=== PATIENT | male | born 1960 | race Caucasian/White ===

== ENCOUNTER 2018-01-25 09:52 | Inpatient (IN) | payer BC ==
[~2018-01-25] VITALS: Ht 182.9 cm; Wt 103.1 kg
[~2018-01-25 09:52] MED LIST: AMLO10TA4 PO; ATOR10TA PO; CALC0.5C8 PO; DARB10SY IJ; ERGO500027 PO; HYDR-2869 PO; HYDR100T24 PO; METO25TA4 PO; PANT40TA3 PO; TAMS0.4C97 PO
--- NOTE | 2018-01-25 10:27 | PHYS DOC ---
Past Medical History Past Medical History: GERD, Hypertension, Renal Failure Past Surgical History: Other Additional Past Surgical Histo: dialysis catheter right chest Smoking: Cigarettes Alcohol Use: Occasionally Drug Use: None Adult General Chief Complaint Chief Complaint: WEAKNESS/GENERALIZED HPI HPI Patient is a 57-year-old male who presents to the emergency department for evaluation of generalized weakness and fatigue. He has had 2 falls in the past few days as well. He does complain of some lower back pain which she states began hurting him after the fall. He denies hitting his head. He is having generalized weakness. He states he has a history of ESRD, and states she last had dialysis over a week ago, when he was apparently seen at [facility]. He denies any chest pain or shortness of breath, nausea, vomiting, or diarrhea. There are no alleviating or exacerbating factors to his symptoms. He reports that he does still make urine, although only very small amounts. Review of Systems Review of Systems Constitutional: Denies fever or chills [] Eyes: Denies change in visual acuity, redness, or eye pain [] HENT: Denies nasal congestion or sore throat [] Respiratory: Denies cough or shortness of breath [] Cardiovascular:The patient denies any shortness of breath, chest pain, palpitations, or orthopnea [] GI: Denies abdominal pain, nausea, vomiting, bloody stools or diarrhea [] : Denies dysuria or hematuria [] Musculoskeletal: Denies neck pain or joint pain [] Integument: Denies rash or skin lesions [] Neurologic: Denies headache, focal weakness or sensory changes [] Endocrine: Denies polyuria or polydipsia [] All other systems were reviewed and found to be within normal limits, except as documented in this note. Allergies Allergies Allergies Coded Allergies Type Severity Reaction Last Updated Verified No Known Drug Allergies 09/05/15 No Physical Exam Physical Exam PHYSICAL EXAM: CONSTITUTIONAL: Well developed, well nourished HEAD: normocephalic, atraumatic EENT: PERRL, EOMI. Conjunctivae normal color, sclerae non-icteric; moist mucous membranes. NECK: Supple, non-tender; no meningismus.There is full, painless range of motion of the cervical spine, without any focal bony midline tenderness to palpation. LUNGS: Lungs CTA, breathing even and unlabored. Normal air movement. HEART: Regular rate and rhythm, no murmur CHEST: No deformity; non-tender ABDOMEN: The abdomen is soft, and non-tender, no masses or bruits. EXTREM: Normal ROM; no deformity, no calf tenderness. Normal pulses palpable in all extremities. There is no pedal edema. The extremities appear atraumatic. There is an AV fistula in the left upper extremity. SKIN: No rash; no diaphoresis NEURO: Alert; normal speech and cognition; CN's grossly intact; strength grossly intact without focal deficit. BACK: No CVA TTP. There is mild tenderness to palpation diffusely in the lower back, without any focal bony tenderness to palpation or step-off. Current Patient Data Vital Signs Vital Signs Date Time Temp Pulse Resp B/P (MAP) Pulse Ox O2 Delivery O2 Flow Rate FiO2 01/25/18 09:55 97.8 99 20 176/79 (111) 97 Room Air 97.8 Lab Values Laboratory Tests Test 01/25/18 11:06 White Blood Count 8.5 x10^3/uL (4.0-11.0) Red Blood Count 3.16 x10^6/uL (4.30-5.70) L Hemoglobin 9.6 g/dL (13.0-17.5) L Hematocrit 28.6 % (39.0-53.0) L Mean Corpuscular Volume 91 fL (79-100) Mean Corpuscular Hemoglobin 31 pg (25-35) Mean Corpuscular Hemoglobin Concent 34 g/dL (31-37) Red Cell Distribution Width 13.6 % (11.5-14.5) Platelet Count 82 x10^3/uL (140-400) L Neutrophils (%) (Auto) 89 % (31-73) H Lymphocytes (%) (Auto) 4 % (24-48) L Monocytes (%) (Auto) 7 % (0-9) Eosinophils (%) (Auto) 0 % (0-3) Basophils (%) (Auto) 0 % (0-3) Neutrophils # (Auto) 7.6 x10^3uL (1.8-7.7) Lymphocytes # (Auto) 0.3 x10^3/uL (1.0-4.8) L Monocytes # (Auto) 0.6 x10^3/uL (0.0-1.1) Eosinophils # (Auto) 0.0 x10^3/uL (0.0-0.7) Basophils # (Auto) 0.0 x10^3/uL (0.0-0.2) Platelet Estimate Pending Sodium Level 131 mmol/L (136-145) L Potassium Level 4.6 mmol/L (3.5-5.1) Chloride Level 94 mmol/L (98-107) L Carbon Dioxide Level 17 mmol/L (21-32) L Anion Gap 20 (6-14) H Blood Urea Nitrogen 120 mg/dL (8-26) H Creatinine 10.9 mg/dL (0.7-1.3) H Estimated GFR (Cockcroft-Gault) 4.9 BUN/Creatinine Ratio 11 (6-20) Glucose Level 127 mg/dL (70-99) H Calcium Level 9.0 mg/dL (8.5-10.1) Magnesium Level 2.2 mg/dL (1.8-2.4) Total Bilirubin 2.5 mg/dL (0.2-1.0) H Aspartate Amino Transferase (AST) 87 U/L (15-37) H Alanine Aminotransferase (ALT) 73 U/L (16-63) H Alkaline Phosphatase 140 U/L (46-116) H Creatine Kinase 401 U/L (39-308) H Creatine Kinase MB (Mass) 17.1 ng/mL (0.0-3.6) H Creatine Kinase MB Relative Index 4.3 % (0-4) H Troponin I Quantitative < 0.017 ng/mL (0.000-0.055) Total Protein 7.2 g/dL (6.4-8.2) Albumin 2.8 g/dL (3.4-5.0) L Albumin/Globulin Ratio 0.6 (1.0-1.7) L Lipase 130 U/L (73-393) Laboratory Tests 01/25/18 11:06 Laboratory Tests 01/25/18 11:06 EKG EKG [Normal sinus rhythm at a rate of 96 beats for minute, left axis deviation, normal intervals. There are no acute ischemic ST/T changes. There are no peaked T waves present.] Radiology/Procedures Radiology/Procedures [PROCEDURE: PORTABLE CHEST 1V PORTABLE CHEST 1V Clinical Indication: ALTERED MENTAL STATUS Comparison: AP chest September 02, 2015. Findings: The cardiomediastinal silhouette is stable. Lungs are clear. There is no pneumothorax. No pleural effusion is appreciated. No acute bone abnormality. Calcific density projecting over the right lateral hemithorax is unchanged. IMPRESSION: No acute cardiopulmonary process. ] PROCEDURE: LUMBAR SPINE 2-3V EXAM: AP, lateral and lumbosacral spot views of the lumbar spine DATE: 01/25/2018 10:18 AM INDICATION: RECENT FALL LOWER BACK PAIN COMPARISON: No Prior FINDINGS: There are 5 nonrib-bearing lumbar-type vertebral bodies. Straightening of the normal lumbar lordosis. No spondylolisthesis. Intervertebral disc heights are grossly preserved. Anterior endplate osteophytes are seen at multiple levels most prominent at L5. Atherosclerotic vascular calcifications are seen. IMPRESSION: 1. Negative acute fracture or subluxation. PROCEDURE: CT HEAD WO CONTRAST PQRS Compliance Statement: One or more of the following individualized dose reduction techniques were utilized for this examination: 1. Automated exposure control 2. Adjustment of the mA and/or kV according to patient size 3. Use of iterative reconstruction technique CT HEAD WITHOUT CONTRAST History: AMS, WEAKNESS Comparison: None. Procedure: Axial images are obtained of the head from the skull base through the vertex without IV contrast. Findings: The ventricles and sulci are normal for the patient's age. There is mild periventricular white matter hypoattenuation. This is a nonspecific finding but is commonly due to chronic small vessel ischemic disease in a patient of this age. No mass-effect, midline shift, hemorrhage, extra-axial fluid collection, or obvious acute infarction is identified. Basilar cisterns are patent. Bone windows demonstrate no acute calvarial abnormality. The visualized paranasal sinuses are clear. Mastoid air cells are well aerated. IMPRESSION: No acute intracranial abnormality. Course & Med Decision Making Course & Med Decision Making Pertinent Labs and Imaging studies reviewed. (See chart for details) [12:00 PM: The patient's condition remained stable. I discussed the case with the patient's PCP, Dr. Kirkland, who will admit the patient for further treatment. Nephrology on-call will be consulted.] Dragon Disclaimer Dragon Disclaimer This electronic medical record was generated, in whole or in part, using a voice recognition dictation system. Departure Departure Impression: Primary Impression: Weakness Additional Impressions: ESRD (end stage renal disease) Noncompliance with renal dialysis Uremia Disposition: 09 ADMITTED INPATIENT Admitting Physician: Alexey Renee Condition: STABLE Referrals: NO PCP (PCP) Problem Qualifiers KIRBY GRAFF MD Jan 25, 2018 10:27
--- NOTE | 2018-01-25 10:46 | EKG ---
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
--- NOTE | 2018-01-25 10:47 | RAD ---
PORTABLE CHEST 1V Clinical Indication: ALTERED MENTAL STATUS Comparison: AP chest September 02, 2015. Findings: The cardiomediastinal silhouette is stable. Lungs are clear. There is no pneumothorax. No pleural effusion is appreciated. No acute bone abnormality. Calcific density projecting over the right lateral hemithorax is unchanged. IMPRESSION: No acute cardiopulmonary process. Electronically signed by: Geronimo Gregg MD (01/25/2018 10:43 AM) [id number]
--- NOTE | 2018-01-25 11:12 | RAD ---
EXAM: AP, lateral and lumbosacral spot views of the lumbar spine DATE: 01/25/2018 10:18 AM INDICATION: RECENT FALL LOWER BACK PAIN COMPARISON: No Prior FINDINGS: There are 5 nonrib-bearing lumbar-type vertebral bodies. Straightening of the normal lumbar lordosis. No spondylolisthesis. Intervertebral disc heights are grossly preserved. Anterior endplate osteophytes are seen at multiple levels most prominent at L5. Atherosclerotic vascular calcifications are seen. IMPRESSION: 1. Negative acute fracture or subluxation. Electronically signed by: Dave Dang MD (01/25/2018 11:08 AM) [id number]
--- NOTE | 2018-01-25 11:13 | RAD ---
PQRS Compliance Statement: One or more of the following individualized dose reduction techniques were utilized for this examination: 1. Automated exposure control 2. Adjustment of the mA and/or kV according to patient size 3. Use of iterative reconstruction technique CT HEAD WITHOUT CONTRAST History: AMS, WEAKNESS Comparison: None. Procedure: Axial images are obtained of the head from the skull base through the vertex without IV contrast. Findings: The ventricles and sulci are normal for the patient's age. There is mild periventricular white matter hypoattenuation. This is a nonspecific finding but is commonly due to chronic small vessel ischemic disease in a patient of this age. No mass-effect, midline shift, hemorrhage, extra-axial fluid collection, or obvious acute infarction is identified. Basilar cisterns are patent. Bone windows demonstrate no acute calvarial abnormality. The visualized paranasal sinuses are clear. Mastoid air cells are well aerated. IMPRESSION: No acute intracranial abnormality. Electronically signed by: Geronimo Gregg MD (01/25/2018 11:09 AM) [id number]
[2018-01-25 11:23] LABS: BASO % 0 % (0-3); EOS % 0 % (0-3); HEMATOCRIT 28.6 % (39.0-53.0); HEMOGLOBIN 9.6 g/dL (13.0-17.5); LYMPH # 0.3 x10^3/uL (1.0-4.8); LYMPH % 4 % (24-48); MEAN CORPUSCULAR HEMOGLOBIN 31 pg (25-35); MEAN CORPUSCULAR HGB CONC 34 g/dL (31-37); MEAN CORPUSCULAR VOLUME 91 fL (79-100); MONO # 0.6 x10^3/uL (0.0-1.1); MONO % 7 % (0-9); NEUT # 7.6 x10^3uL (1.8-7.7); NEUT % 89 % (31-73); PLATELET COUNT 82 x10^3/uL (140-400); RED BLOOD COUNT 3.16 x10^6/uL (4.30-5.70); RED CELL DISTRIBUTION WIDTH 13.6 % (11.5-14.5); WHITE BLOOD COUNT 8.5 x10^3/uL (4.0-11.0)
[2018-01-25 11:33] LABS: CREATININE 10.9 mg/dL (0.7-1.3); GFR 4.9; POTASSIUM 4.6 mmol/L (3.5-5.1)
[2018-01-25 11:39] LABS: ALBUMIN 2.8 g/dL (3.4-5.0); ALBUMIN/GLOBULIN RATIO 0.6 (1.0-1.7); MAGNESIUM 2.2 mg/dL (1.8-2.4); TOTAL BILIRUBIN 2.5 mg/dL (0.2-1.0); TOTAL PROTEIN 7.2 g/dL (6.4-8.2)
[2018-01-25 12:16] LABS: % BANDS 9 % (0-9); % LYMPHS 3 % (24-48); % MONOS 8 % (0-10); % MYELOS 1 % (0-0); % SEGS 79 % (35-66)
[2018-01-25 12:19] LABS: PLT ESTIMATE DECREASED (ADEQUATE); TOXIC GRANULATION SLIGHT
[2018-01-25] MEDS ORDERED: IV NORMAL SALINE 1000ML BAG 1,000 ML IV PRN ×2 (13:00)
[2018-01-25] MEDS ORDERED: DIALYSIS PATIENT. MC PRN ×2 (15:45)
[2018-01-25] MEDS ORDERED: ACETAMINOPHEN 325 MG TABLET. PO ONE (16:15)
[2018-01-25 19:00] VITALS: BP 168/70
[2018-01-25] MEDS: ACETAMINOPHEN 325 MG TABLET. PO PRN (22:30)
[2018-01-25 23:00] VITALS: BP 152/85
[2018-01-26 03:00] VITALS: BP 159/83
[2018-01-26] MEDS: ACETAMINOPHEN 325 MG TABLET. PO PRN ×2 (06:40→21:00)
[2018-01-26] MEDS ORDERED: IV NORMAL SALINE 1000ML BAG 1,000 ML IV PRN ×2 (08:13)
[2018-01-26] MEDS ORDERED: ALBUMIN HUMAN 25% 200 ML IV PRN (08:15)
[2018-01-26] MEDS ORDERED: DIALYSIS PATIENT. MC PRN ×2 (08:15)
--- NOTE | 2018-01-26 10:05 | HP ---
ADMIT DATE: 01/25/2018 CHIEF COMPLAINT AND HISTORY OF PRESENT ILLNESS: This 57-year-old male presented to the Emergency Room for evaluation of generalized weakness and fatigue. He had had a couple of falls over the few days prior and some lower back pain resulting from this. He has a history of end-stage renal disease and has not had dialysis for over a week or so. He went to [facility] to get dialysis, evaluated and sent home, told him he should do it as an outpatient. He has not had a good appetite. He still makes some urine, but not like he has in the past. PAST MEDICAL HISTORY: Remarkable for end-stage renal disease with dialysis, hypertension, GERD. MEDICATIONS: Brought with the patient, listed on the computer and have been addressed. ALLERGIES: He has no known drug allergies. SOCIAL HISTORY: He is a daily smoker, occasionally uses alcohol, does not use drugs. FAMILY HISTORY: Noncontributory. REVIEW OF SYSTEMS: Is that as mentioned above. PHYSICAL EXAMINATION: GENERAL: He is well-developed, well-nourished male, in no acute distress. He has received dialysis on the day of admission and feels much better. HEAD, EYES, EARS, NOSE AND THROAT: Unremarkable. NECK: Supple, without adenopathy or thyromegaly. CHEST: Clear to auscultation. HEART: Regular rate and rhythm without S3, S4 or murmur. ABDOMEN: Soft, nontender, without hepatosplenomegaly or mass. EXTREMITIES: Without cyanosis, clubbing or edema. NEUROLOGIC: Nonfocal. Hemoglobin is 9.6. Admission BUN and creatinine were 120 and 10.8. Bilirubin was elevated at 2.5. Albumin low at 2.8 and CPK was elevated at 401. Admission chest x-ray showed no acute cardiopulmonary process. CT scanning of the head showed no acute process. Lumbar spine x-ray was negative for any kind of acute fracture or subluxation. IMPRESSION: Azotemia due to missing dialysis with falls, etc. related to the same. PLAN: The patient has been admitted. Renal has been consulted. Dialysis will be restarted, get him stable and anticipate early discharge. It was impressed upon him the need for continuing dialysis on a regular schedule as an outpatient. He voices his understanding. EZEKIEL BARAJAS MD DR: Diana JOB#: [id number] / [id number]
--- NOTE | 2018-01-26 12:04 | PDOC2 ---
CONSULT Date of Consult Date of Consult DATE: 01/26/18 TIME: 12:00 Reason for Consult Reason for Consult: ESRD Referring Physician Referring Physician: APPL Identification/Chief Complaint Chief Complaint CONFUSION Source Source: Chart review, Patient History of Present Illness Reason for Visit: THIS IS A 57 YR OLD WITH ESRD AND ON OP HD ON MWF. HE IS VERY NON COMPLIANT AND HAS NOT BEEN TO HIS TREATMENTS IN OVER A WEEK. LABS ARE C/W ESRD Past Medical History Cardiovascular: CHF, HTN, ID Pulmonary: No pertinent hx CENTRAL NERVOUS SYSTEM: Other GI: No pertinent hx Heme/Onc: Anemia NOS Hepatobiliary: No pertinent hx Psych: Anxiety Musculoskeletal: No pain Rheumatologic: No pertinent hx Infectious disease: Other Renal/: Chronic renal failure, Other Endocrine: No pertinent hx Past Surgical History Past Surgical History: No pertinent history Social History ALCOHOL: none Drugs: None Current Problem List Problem List Problems Medical Problems: (1) ESRD (end stage renal disease) Status: Acute (2) Noncompliance with renal dialysis Status: Acute (3) Uremia Status: Acute (4) Weakness Status: Acute Current Medications Current Medications Current Medications Sodium Chloride 1,000 ml @ 1,000 mls/hr Q1H PRN IV hypotension; Start at 13:00; Stop 01/25/18 at 18:59; Status DC Sodium Chloride 1,000 ml @ 400 mls/hr Q2H30M PRN IV PATENCY; Start 01/25/18 at 13:00; Stop 01/26/18 at 00:59; Status DC Info (PHARMACY MONITORING -- do not chart) 1 each PRN DAILY PRN MC SEE COMMENTS ; Start 01/25/18 at 15:45; Status UNV Info (PHARMACY MONITORING -- do not chart) 1 each PRN DAILY PRN MC SEE COMMENTS ; Start 01/25/18 at 15:45 Acetaminophen (Tylenol) 650 mg 1X ONCE PO Last administered on 01/25/18at 16: 15; Start 01/25/18 at 16:15; Stop 01/25/18 at 16:18; Status DC Acetaminophen (Tylenol) 650 mg PRN Q6HRS PRN PO PAIN Last administered on 01/26at 06:40; Start 01/25/18 at 22:30 Sodium Chloride 1,000 ml @ 1,000 mls/hr Q1H PRN IV hypotension; Start at 08:13; Stop 01/26/18 at 14:12 Albumin Human 200 ml @ 200 mls/hr 1X PRN PRN IV Hypotension; Start 01/26/18 at 08:15; Stop 01/26/18 at 14:14 Sodium Chloride 1,000 ml @ 400 mls/hr Q2H30M PRN IV PATENCY; Start 01/26/18 at 08:13; Stop 01/26/18 at 20:12 Info (PHARMACY MONITORING -- do not chart) 1 each PRN DAILY PRN MC SEE COMMENTS ; Start 01/26/18 at 08:15; Status UNV Info (PHARMACY MONITORING -- do not chart) 1 each PRN DAILY PRN MC SEE COMMENTS ; Start 01/26/18 at 08:15; Status UNV Amlodipine Besylate (Norvasc) 10 mg DAILY PO ; Start 01/26/18 at 10:00 Atorvastatin Calcium (Lipitor) 5 mg QHS PO ; Start 01/26/18 at 21:00 Vitamin D (Vitamin D3) 5,000 unit DAILY PO ; Start 01/27/18 at 10:00 Metoprolol Tartrate (Lopressor) 25 mg BID PO ; Start 01/26/18 at 10:00 Pantoprazole Sodium (Protonix) 40 mg DAILYAC PO ; Start 01/26/18 at 10:00 Calcitriol (Rocaltrol) 0.5 mcg DAILY PO ; Start 01/26/18 at 10:00 Darbepoetin Gm (Aranesp) 60 mcg WEEKLYHS SQ ; Start 01/26/18 at 21:00 Hydralazine HCl (Apresoline) 100 mg TID PO ; Start 01/26/18 at 10:00 Active Scripts Active Lipitor (Atorvastatin Calcium) 10 Mg Tablet 0.5 Tab PO QHS Norvasc (Amlodipine Besylate) 10 Mg Tablet 10 Mg PO DAILY Reported Hydralazine Hcl 100 Mg Tablet 1 Tab PO TID LAST DOSE: 09/06/15 AFTERNOON NEXT DOSE: 09/06/15 BEDTIME HOLD DOSE PRIOR TO DIALYSIS Vitamin D2 (Ergocalciferol (Vitamin D2)) 50,000 Unit Capsule 5,000 Unit PO DAILY Metoprolol Tartrate 25 Mg Tablet 25 Mg PO BID LAST DOSE: 09/06/15 AM NEXT DOSE: 09/06/15 PM Protonix (Pantoprazole Sodium) 40 Mg Tablet.dr 40 Mg PO DAILY LAST DOSE: 09/06/15 AM NEXT DOSE: 09/07/15 AM Flomax (Tamsulosin Hcl) 0.4 Mg Cap.er.24h 0.4 Mg PO QHS LAST DOSE: 09/05/15 BEDTIME NEXT DOSE: 09/06/15 BEDTIME Aranesp (Darbepoetin Gm in Polysorbat) 10 Mcg/0.4 Ml Syringe 60 Mcg IJ WEEKLY Calcitriol 0.5 Mcg Capsule 0.5 Mcg PO DAILY LAST DOSE: 09/06/15 AM NEXT DOSE: 09/07/15 AM Lipitor (Atorvastatin Calcium) 10 Mg Tablet 5 Tab PO QHS LAST DOSE: 09/05/15 BEDTIME NEXT DOSE: 09/06/15 BEDTIME Allergies Allergies: Coded Allergies: No Known Drug Allergies (Unverified , 09/05/15) ROS Review of System CONFUSED Physical Exam General: Alert, Cooperative, No acute distress HEENT: Atraumatic, PERRLA Lungs: Clear to auscultation Heart: Regular rate Abdomen: Normal bowel sounds, Soft, No tenderness Extremities: No cyanosis Skin: No breakdown Neuro: Other (CONFUSED, NO ASYMMETRY) Psych/Mental Status: Mental status NL, Mood NL MUSCULOSKELETAL: No deformity, No swelling Vitals VITALS Vital Signs Date Time Temp Pulse Resp B/P (MAP) Pulse Ox O2 Delivery O2 Flow Rate FiO2 01/26/18 08:00 Room Air 01/26/18 03:00 98.0 97 18 159/83 (108) 96 98.0 Labs Labs Laboratory Tests Test 01/25/18 11:06 White Blood Count 8.5 x10^3/uL (4.0-11.0) Red Blood Count 3.16 x10^6/uL (4.30-5.70) Hemoglobin 9.6 g/dL (13.0-17.5) Hematocrit 28.6 % (39.0-53.0) Mean Corpuscular Volume 91 fL (79-100) Mean Corpuscular Hemoglobin 31 pg (25-35) Mean Corpuscular Hemoglobin Concent 34 g/dL (31-37) Red Cell Distribution Width 13.6 % (11.5-14.5) Platelet Count 82 x10^3/uL (140-400) Neutrophils (%) (Auto) 89 % (31-73) Lymphocytes (%) (Auto) 4 % (24-48) Monocytes (%) (Auto) 7 % (0-9) Eosinophils (%) (Auto) 0 % (0-3) Basophils (%) (Auto) 0 % (0-3) Neutrophils # (Auto) 7.6 x10^3uL (1.8-7.7) Lymphocytes # (Auto) 0.3 x10^3/uL (1.0-4.8) Monocytes # (Auto) 0.6 x10^3/uL (0.0-1.1) Eosinophils # (Auto) 0.0 x10^3/uL (0.0-0.7) Basophils # (Auto) 0.0 x10^3/uL (0.0-0.2) Segmented Neutrophils % 79 % (35-66) Band Neutrophils % 9 % (0-9) Lymphocytes % 3 % (24-48) Monocytes % 8 % (0-10) Myelocytes % 1 % (0-0) Toxic Granulation Slight Platelet Estimate Decreased (ADEQUATE) Sodium Level 131 mmol/L (136-145) Potassium Level 4.6 mmol/L (3.5-5.1) Chloride Level 94 mmol/L (98-107) Carbon Dioxide Level 17 mmol/L (21-32) Anion Gap 20 (6-14) Blood Urea Nitrogen 120 mg/dL (8-26) Creatinine 10.9 mg/dL (0.7-1.3) Estimated GFR (Cockcroft-Gault) 4.9 BUN/Creatinine Ratio 11 (6-20) Glucose Level 127 mg/dL (70-99) Calcium Level 9.0 mg/dL (8.5-10.1) Magnesium Level 2.2 mg/dL (1.8-2.4) Total Bilirubin 2.5 mg/dL (0.2-1.0) Aspartate Amino Transf (AST/SGOT) 87 U/L (15-37) Alanine Aminotransferase (ALT/SGPT) 73 U/L (16-63) Alkaline Phosphatase 140 U/L (46-116) Creatine Kinase 401 U/L (39-308) Creatine Kinase MB (Mass) 17.1 ng/mL (0.0-3.6) Creatine Kinase MB Relative Index 4.3 % (0-4) Troponin I Quantitative < 0.017 ng/mL (0.000-0.055) Total Protein 7.2 g/dL (6.4-8.2) Albumin 2.8 g/dL (3.4-5.0) Albumin/Globulin Ratio 0.6 (1.0-1.7) Lipase 130 U/L (73-393) Assessment/Plan Assessment/Plan IMP ESRD-OP HD ON MWF UREMIA MET ENCEPHALOPATHY DM II HTN PLAN ENC COMPLIANCE HD TODAY UF TO DW START ARANESP RESUME HOME MEDS OK TO D/C MACY GRADY MD Jan 26, 2018 12:04
[2018-01-26 12:57] VITALS: BP 185/92
[2018-01-26] MEDS: CALCITRIOL 0.25 MCG CAPSULE. PO SCH (13:04)
[2018-01-26] MEDS: amLODIPine BESYLATE 10 MG TABLET PO SCH (13:05)
[2018-01-26] MEDS: METOPROLOL TART IMMED RELEASE 25 MG TABLET. PO SCH ×2 (13:05→21:00)
[2018-01-26] MEDS: PANTOPRAZOLE 40 MG TABLET.DR. PO SCH (13:05)
[2018-01-26 15:00] VITALS: BP 160/8
[2018-01-26 19:00] VITALS: BP 178/96
[2018-01-26] MEDS ORDERED: DARBEPOETIN ALFA 60 MCG/0.3 ML DISP.SYRIN. SQ SCH ×2 (21:00)
[2018-01-26] MEDS ORDERED: ATORVASTATIN CALCIUM 10 MG TABLET. PO SCH (21:00)
[2018-01-26 23:00] VITALS: BP 153/74
[2018-01-27 03:04] VITALS: BP 152/81
[2018-01-27] MEDS: PANTOPRAZOLE 40 MG TABLET.DR. PO SCH (06:41)
[2018-01-27 07:00] VITALS: BP 154/100
[2018-01-27] MEDS: METOPROLOL TART IMMED RELEASE 25 MG TABLET. PO SCH (08:40)
[2018-01-27] MEDS: amLODIPine BESYLATE 10 MG TABLET PO SCH (08:41)
[2018-01-27] MEDS: CALCITRIOL 0.25 MCG CAPSULE. PO SCH (08:42)
--- NOTE | 2018-01-27 08:51 | PDOC ---
GENERAL General: see discharge summary. VITAL SIGNS Vital Signs: Vital Signs Date Time Temp Pulse Resp B/P (MAP) Pulse Ox O2 Delivery O2 Flow Rate FiO2 01/27/18 08:41 107 174/81 01/27/18 08:00 Room Air 01/27/18 03:04 98.0 20 96 98.0 I & O I & O Intake and Output 01/27/18 07:00 Intake Total 100 ml Balance 100 ml Intake Oral 100 ml # Voids 3 ALLERGIES Allergies: Allergies Coded Allergies Type Severity Reaction Last Updated Verified No Known Drug Allergies 09/05/15 No MEDS Medications: Current Medications Medications (Trade) Dose Ordered Sig/Ghada Start Time Stop Time Status Last Admin Dose Admin Acetaminophen (Tylenol) 650 mg PRN Q6HRS PRN 01/25/18 22:30 01/26/18 21:00 650 MG Albumin Human 200 ml @ 200 mls/hr 1X PRN PRN 01/26/18 08:15 01/26/18 14:14 DC Amlodipine Besylate (Norvasc) 10 mg DAILY 01/26/18 10:00 01/27/18 08:41 10 MG Atorvastatin Calcium (Lipitor) 5 mg QHS 01/26/18 21:00 01/26/18 21:00 5 MG Calcitriol (Rocaltrol) 0.5 mcg DAILY 01/26/18 10:00 01/27/18 08:42 0.5 MCG Darbepoetin Gm (Aranesp) 60 mcg WEEKLYHS 01/26/18 21:00 UNV Hydralazine HCl (Apresoline) 100 mg TID 01/26/18 10:00 01/27/18 08:39 100 MG Info (PHARMACY MONITORING -- do not chart) 1 each PRN DAILY PRN 01/26/18 08:15 UNV Metoprolol Tartrate (Lopressor) 25 mg BID 01/26/18 10:00 01/27/18 08:40 25 MG Pantoprazole Sodium (Protonix) 40 mg DAILYAC 01/26/18 10:00 01/27/18 06:41 40 MG Sodium Chloride 1,000 ml @ 400 mls/hr Q2H30M PRN 01/26/18 08:13 01/26/18 20:12 DC Vitamin D (Vitamin D3) 5,000 unit DAILY 01/27/18 10:00 EZEKIEL BARAJAS MD Jan 27, 2018 08:51
[2018-01-27 10:00] VITALS: BP 154/91
[2018-01-27] MEDS ORDERED: CHOLECALCIFEROL (VITAMIN D3) 5,000 UNIT CAPSULE PO SCH (10:00)
--- NOTE | 2018-01-27 12:25 | DS ---
DATE OF DISCHARGE: 01/27/2018 PRIMARY DIAGNOSIS: Uremia. ADDITIONAL DIAGNOSES: Weakness, fatigue, end-stage renal disease, hypertension, gastroesophageal reflux disease, noncompliance with dialysis. CHIEF COMPLAINT AND HISTORY OF PRESENT ILLNESS: This 57-year-old male presented to the Emergency Room with generalized weakness, fatigue with a couple of falls over the few days prior to admission, some lower back pain resulting from this. He has a history of end-stage renal disease, not had his dialysis for over a week or so. He has not had a good appetite. Still makes some urine, but not like in the past. SUMMARY OF STAY: The patient was admitted. Renal was consulted. He was uremic on admission with an initial BUN 120, creatinine 10.9. Sodium was 131, CO2 level was depressed at 17. BUN level was low at 2.8, hemoglobin was 9.6, platelet count was 82,000. By the following day after dialysis, the patient felt much better, was stronger. Appetite was returning. I was impressed upon him the need for dialysis, which he understands and it was felt that he could be dismissed with outpatient to resume his regular outpatient dialysis schedule. DISPOSITION: The patient is discharged to home. DIET: Renal diet. ACTIVITY: As tolerated, office in 1-2 weeks. DISCHARGE MEDICATIONS: Those of his regular home medications. EZEKIEL BARAJAS MD DR: ALLY/keely JOB#: [id number] / [id number]
== END 2018-01-27 11:19 | disposition home or self-care (01) | DRG 291 ==
LOC: ER 09:52 → 5 NORTH 12:00
PROVIDERS: ADMIT Family Medicine; ATTEND Family Medicine
PROC: 5A1D70Z Performance of Urinary Filtration, Intermittent, Less than 6 Hours Per Day (ICD-10-PCS; principal; 2018-01-25)
PROC: 5A1D70Z Performance of Urinary Filtration, Intermittent, Less than 6 Hours Per Day (ICD-10-PCS; 2018-01-26)
DX: I13.2 Hypertensive heart and chronic kidney disease with heart failure and with stage 5 chronic kidney disease, or end stage renal disease (principal); G93.41 Metabolic encephalopathy; N18.6 End stage renal disease; E11.22 Type 2 diabetes mellitus with diabetic chronic kidney disease; F41.9 Anxiety disorder, unspecified; I50.9 Heart failure, unspecified; M54.5 Low back pain; F17.200 Nicotine dependence, unspecified, uncomplicated; W18.39XA Other fall on same level, initial encounter; K21.9 Gastro-esophageal reflux disease without esophagitis; Z91.15 Patient's noncompliance with renal dialysis; Z91.19 Patient's noncompliance with other medical treatment and regimen; Z99.2 Dependence on renal dialysis; Y93.89 Activity, other specified; Y92.89 Other specified places as the place of occurrence of the external cause; Y99.8 Other external cause status
CPT/HCPCS: 36415; 70450; 71045; 72100; 80053; 82553; 82962; 83690; 83735; 84484; 85007; 85025; 87641; 93005; J0881; 99285-25